=== PATIENT | male | born 1980 | race Caucasian/White ===

== ENCOUNTER → 2016-09-26 | Outpatient (CLI) | payer OTHER ==
[2016-09-26 10:07] LABS: DAYS OF ABSTINENCE 4; METHOD OF COLLECTION MASTURBATION; SEMEN COLOR GRAY OR GRAY-WHITE (GRY/GRYWHTE); SEMEN TIME OF COLLECTION 820; SEMEN VOLUME 1.5 ML (>1.5); SPERM VIABILITY STAIN NOT INDICATED % (>58%); TYPE OF SPECIMEN CONTAINER STERILE CUP
== END | disposition home or self-care (01) ==
LOC: C.LAB 09:25
PROVIDERS: ATTEND Obstetrics & Gynecology Reproductive Endocrinology
DX: Z31.41 Encounter for fertility testing (principal)